=== PATIENT | male | born 1995 | race American Indian/Alaskan Native ===

== ENCOUNTER 2021-02-07 09:09 | Emergency (ER) | payer SELFPAY ==
[2021-02-07 09:29] VITALS: BP 105/62
--- NOTE | 2021-02-07 10:59 | Emergency Department Report ---
ED Fall HPI - General Chief Complaint: Back Pain/Injury Stated Complaint: RT RIB PAIN Time Seen by Provider: 02/07/21 10:50 Source: patient Mode of arrival: Ambulatory - History of Present Illness Initial Comments: 25-year-old male presents to the ER today with complaints of right rib pain. Patient states that he accidentally fell into a post while he was at work. He states that this occurred about a week ago. He states that this is his first time seeking medical attention after the injury. Has been taking [id number] medications which has not been helping the pain. He denies any obvious bruising, swelling or open wounds to the ribs. He reports worsening pain with palpation, cough, movement and with deep breaths. He denies any associated abdominal pain, back pain, or any other symptoms at this time. MD Complaint: fall -: Sudden, week(s) (1) - Related Data Previous Rx's Medication Instructions Recorded Last Taken Type Ketorolac [Toradol] 10 mg PO Q6H PRN #20 tablet 02/07/21 Unknown Rx Lidocaine [Lidoderm] 1 each TP Q12H #10 adh..patch 02/07/21 Unknown Rx methOCARBAMOL [Robaxin TAB] 750 mg PO Q8H PRN #30 tablet 02/07/21 Unknown Rx Allergies Allergy/AdvReac Type Severity Reaction Status Date / Time No Known Allergies Allergy Unverified 02/07/21 09:27 ED Review of Systems ROS: Stated complaint: RT RIB PAIN Other details as noted in HPI Comment: All other systems reviewed and negative Constitutional: denies: chills, fever Eyes: denies: eye pain, eye discharge, vision change ENT: denies: ear pain, throat pain Respiratory: denies: cough, shortness of breath, SOB with exertion, SOB at rest, wheezing Cardiovascular: other (Right lateral lower rib pain). denies: chest pain, palpitations Endocrine: no symptoms reported Gastrointestinal: denies: abdominal pain, nausea, diarrhea, constipation, hematemesis, melena, hematochezia Genitourinary: denies: urgency, dysuria, frequency, hematuria, discharge Musculoskeletal: denies: back pain, joint swelling, arthralgia Skin: denies: rash, lesions Neurological: denies: headache, weakness, paresthesias Psychiatric: denies: anxiety, depression, auditory hallucinations, visual hallucinations, homicidal thoughts, suicidal thoughts Hematological/Lymphatic: denies: easy bleeding, easy bruising, swollen glands ED Past Medical Hx - Past Medical History Previous Medical History?: No - Medications Home Medications: Home Medications Medication Instructions Recorded Confirmed Last Taken Type Ketorolac [Toradol] 10 mg PO Q6H PRN #20 tablet 02/07/21 Unknown Rx Lidocaine [Lidoderm] 1 each TP Q12H #10 adh..patch 02/07/21 Unknown Rx methOCARBAMOL [Robaxin TAB] 750 mg PO Q8H PRN #30 tablet 02/07/21 Unknown Rx ED Physical Exam - General Limitations: No Limitations General appearance: alert, in no apparent distress - Head Head exam: Present: atraumatic, normocephalic, normal inspection - Eye Eye exam: Present: normal appearance, PERRL, EOMI Pupils: Present: normal accommodation - Neck Neck exam: Present: normal inspection, full ROM - Respiratory Respiratory exam: Present: normal lung sounds bilaterally, chest wall tenderness (Moderate point tenderness to palpation to the right lower lateral rib; no apparent flail chest, bruising, ecchymosis or open wound or deformity). Absent: respiratory distress - Cardiovascular Cardiovascular Exam: Present: regular rate, normal rhythm, normal heart sounds - GI/Abdominal GI/Abdominal exam: Present: soft. Absent: distended, tenderness, guarding, rebound - Back Exam Back exam: Present: normal inspection - Neurological Exam Neurological exam: Present: alert, oriented X3, CN II-XII intact, normal gait - Psychiatric Psychiatric exam: Present: normal affect, normal mood - Skin Skin exam: Present: intact ED Course Vital Signs 02/07/21 09:24 Temperature 98.0 F Pulse Rate 80 Respiratory 18 Rate Blood Pressure 105/62 O2 Sat by Pulse 99 Oximetry ED Medical Decision Making - Radiology Data Radiology results: report reviewed Patient: TIERRA VASQUEZ MR#: [id number] : 1995 Acct:[id number] Age/Sex: 25 / M ADM Date: 02/07/21 Loc: ED Attending Dr: Ordering Physician: PAOLO REY Date of Service: 02/07/21 Procedure(s): XR ribs UNI w PA Chest 3+V RT Accession Number(s): [id number] cc: PAOLO REY Fluoro Time In Minutes: RIGHT RIBS WITH CHEST RADIOGRAPH, 4 VIEWS INDICATION / CLINICAL INFORMATION: rib pain after injury. COMPARISON: None available. FINDINGS: No fracture or other rib abnormality. No pneumothorax, pleural fluid or acute pulmonary disease. Signer Name: Georges Overton MD Signed: 02/07/2021 11:22 AM Workstation Name: [id number] Transcribed By: TM Dictated By: Georges Overton MD Electronically Authenticated By: Georges Overton MD Signed Date/Time: 02/07/211121 DD/ 20 TD/TT: Critical care attestation.: If time is entered above; I have spent that time in minutes in the direct care of this critically ill patient, excluding procedure time. ED Disposition Clinical Impression: Contusion of rib on right side Disposition: - TO HOME OR SELFCARE Is pt being admited?: No Does the pt Need Aspirin: No Condition: Stable Instructions: Rib Contusion Additional Instructions: Take the toradol, robaxin and lidocaine patches as prescribed. Do not wrap your ribs. You can hold pillow against it to help with pain. Follow up with PCP listed on discharge instructions in 1 week. Return to ED if worse. Prescriptions: Lidocaine [Lidoderm] 1 each TP Q12H #10 adh..patch methOCARBAMOL [Robaxin TAB] 750 mg PO Q8H PRN #30 tablet PRN Reason: Muscle Spasm Ketorolac [Toradol] 10 mg PO Q6H PRN #20 tablet PRN Reason: Pain Referrals: JOURDAN PERDUE MD [Staff Physician] - 3-5 Days Forms: Work/School Release Form(ED) Time of Disposition: 11:39
--- NOTE | 2021-02-07 11:26 | XRay Report ---
RIGHT RIBS WITH CHEST RADIOGRAPH, 4 VIEWS INDICATION / CLINICAL INFORMATION: rib pain after injury. COMPARISON: None available. FINDINGS: No fracture or other rib abnormality. No pneumothorax, pleural fluid or acute pulmonary disease. Signer Name: Georges Overton MD Signed: 02/07/2021 11:22 AM Workstation Name: [id number]
== END 2021-02-07 11:51 | disposition home or self-care (01) ==
LOC: ED 09:09
DX: S20.211A Contusion of right front wall of thorax, initial encounter (principal); Z79.899 Other long term (current) drug therapy; W18.30XA Fall on same level, unspecified, initial encounter; Y93.89 Activity, other specified; Y92.89 Other specified places as the place of occurrence of the external cause; Y99.0 Civilian activity done for income or pay
CPT/HCPCS: 99283